=== PATIENT | female | born 1950 | race Caucasian/White ===

== ENCOUNTER 2019-02-09 18:11 | Inpatient (IN) | payer OTHER, MEDICARE ==
[~2019-02-09] VITALS: Ht 156.2 cm; Wt 78.5 kg
--- NOTE | 2019-02-09 20:48 | NUR ---
PT GETTING BLOOD DRAWN AT THIS TIME. INFORMED RACING SECRETARY THAT PT WILL GO TO BED 11 WHEN BLOOD DRAW IS COMPLETE.
[2019-02-09 21:17] LABS: BASOPHIL % 0.2 % (0-2); PLATELET COUNT 232 x10^3mcL (130-400); RED CELL DISTRIBUTION WIDTH 14.1 % (11.5-14.5)
[2019-02-09 21:20] LABS: BILIRUBIN TOTAL 1.88 mg/dL (0.20-1.00); CALCIUM 9.1 mg/dL (8.5-10.1); TOTAL PROTEIN, SERUM 7.8 g/dL (6.4-8.2)
[2019-02-09 21:24] LABS: ALBUMIN 3.3 g/dL (3.4-5.0); POTASSIUM SERUM 2.7 mmol/L (3.5-5.1)
[2019-02-09 21:29] LABS: CK-MB < 0.5 ng/mL (0-3.6); CREATINE KINASE 61 U/L (26-192)
--- NOTE | 2019-02-09 21:59 | NUR ---
PT. PRESENTS TO ER C/O N/V X 1 DAY, FEVER & CHILLS, DENIES ANY OTHER SYMPTOMS, PT. PLACED IN BED 11, AAOX4, NO ACUTE DISTRESS NOTED, SAFETY PRECAUTIONS IN PLACE, PLACED ON CM, AT BEDSIDE, WILL CONTINUE TO MONITOR. FLU SWAB & URINE OBTAINED
--- NOTE | 2019-02-09 22:15 | NUR ---
MEDICATE PT. PER DR ORDER, POTASSIUM RUNNING, PT. TOLERATING WELL, SEE EMAR
[2019-02-09 22:51] LABS: microscopic required? YES; urine erythrocyte TRACE (NEGATIVE)
--- NOTE | 2019-02-09 23:07 | NUR ---
DR. RAMOS WITH UPDATE ON POC
--- NOTE | 2019-02-09 23:29 | NUR ---
MEDICATED PT. PER DR. VILLARREAL, PT. TOLERATING WELL, SEE EMAR
[2019-02-09] MEDS ORDERED: SYN2 PO (23:33)
[2019-02-09] MEDS ORDERED: AVAPRO75 MG PO (23:36)
[2019-02-09] MEDS ORDERED: [UNRECOGNIZED DRUG - CODE] PO (23:37)
[2019-02-09] MEDS ORDERED: KLOR-CON 88 MEQ PO (23:38)
[2019-02-09] MEDS ORDERED: GLUCOSAMINE CH1 EAC3 PO (23:39)
[2019-02-09] MEDS ORDERED: PRESERVISION A1 EACH PO (23:40)
[2019-02-09] MEDS ORDERED: FORTAMET500 M1 PO (23:41)
[2019-02-09] MEDS ORDERED: GLUCOPHAGE XR500 MG PO (23:43)
[2019-02-09] MEDS ORDERED: VITAMIN C1000 M4 PO (23:44)
[2019-02-09] MEDS ORDERED: CALCIUM 500 +1 EACH PO (23:48)
[2019-02-09] MEDS ORDERED: PHARMASSURE FO0.4 MG PO (23:48)
[2019-02-09] MEDS ORDERED: ATORVASTATIN CA40 M1 PO (23:49)
[2019-02-09] MEDS ORDERED: VITD PO (23:50)
--- NOTE | 2019-02-10 00:22 | NUR ---
PT. LAYING IN BED, AAOX4, NO ACUTE DISTRESS NOTED, DENIES PAIN, PENDING ADMIT, WAITING FOR ROOM ASSIGNMENT, UPDATED PT WITH POC, HUSABND AT BEDSIDE, WILL MONITOR.
--- NOTE | 2019-02-10 00:52 | NUR ---
REPORT CALLED TO DORA BARRIGA RN
--- NOTE | 2019-02-10 01:08 | NUR ---
RECEIVED PT FROM ED VIA [facility], CAME IN DUE TO FEVER X2 DAYS. AAOX4. DENIES HEADACHE/DIZZINESS. NO SOB NOTED, LUNG SOUNDS CTA. DENIES CHEST PAIN/PRESSURE. 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 VOIDS FREELY. DENIES BURNING SENSATION ON URINATION. IV SITE ON THE LFA IS PATENT AND INTACT. SIDE RAILS UPX2. CALL LIGHT ON REACH. ENDORSED TO PRIMARY NURSE TO FANNY FOR CONTINUITY OF CARE.
--- NOTE | 2019-02-10 01:10 | NUR ---
RECEIVED PT FROM MELISSA PHILLIPS. PT AOX4. IN NO ACUTE DISTRESS. CALL LIGHT WITHIN REACH. BED IN LOWEST POSITION. WILL CONTINUE TO MONITOR.
[2019-02-10 01:24] VITALS: BP 123/72
[2019-02-10 01:26] VITALS: Ht 156.2 cm; Wt 78.5 kg
--- NOTE | 2019-02-10 03:31 | NUR ---
PT TEMP 102.9 ORALLY, MEDICATED PER EMAR. COOLING MEASURES IN PLACE.
[2019-02-10 05:16] VITALS: BP 108/49
--- NOTE | 2019-02-10 05:22 | NUR ---
TEMP 102.4, AWAITING CALL BACK FROM DR. ANTONIO.
[2019-02-10 06:40] LABS: BASOPHIL % 0.1 % (0-2); PLATELET COUNT 191 x10^3mcL (130-400); RED CELL DISTRIBUTION WIDTH 14.3 % (11.5-14.5)
[2019-02-10 07:05] LABS: CARBON DIOXIDE 25.3 mmol/L (21-32); CHLORIDE SERUM 102 mmol/L (98-107); CREATININE SERUM 0.9 mg/dL (0.6-1.0); GFR1 > 60 mL/min; GLUCOSE SERUM 138 mg/dL (74-106); MAGNESIUM 1.1 mg/dL (1.8-2.4); PHOSPHOROUS 1.7 mg/dL (2.5-4.9); SODIUM SERUM 140 mmol/L (136-145)
--- NOTE | 2019-02-10 07:30 | NUR ---
PT ENDORSE TO ME THIS MORNING, LAYING IN BED RESTING, AA/OX4, BREATHING EVEN AND UNLABORED ON RA, NO ACUTE RESP DISTRESS OR SOB NOTED. TELE [address] WAVE DECREASE, DENIES ANY CP OR PRESSURE. LAST BM 02/09, VOIDS FREELY. AMB, IV TO THE LFA INTACT AND PATENT INFUSING AT 100ML/HR, NO REDNESS OR SWELLING NOTED. CALL LIGHT IN REACH. BED IN LOW POSITION. WILL CONTINUE TO MONITOR.
[2019-02-10 07:31] LABS: POTASSIUM SERUM 2.6 mmol/L (3.5-5.1)
--- NOTE | 2019-02-10 08:09 | NUR ---
LAB CALLED PT K 2.6 DR. HICKMAN MADE AWARE.
[2019-02-10 08:59] VITALS: BP 120/57
[2019-02-10 11:36] VITALS: BP 131/63
--- NOTE | 2019-02-10 12:24 | NUR ---
PT ACCU CK IS 194, REFUSING TO HAVE 3 UNITS OF INSULIN, ASKING ABOUT METFORMIN MEDICATION. DR. HICKMAN MADE AWARE OF PTS ACCU CHECK AND THAT PT WOULD LIKE TO SPEAK TO HER REGRADING METFORMIN MED.
--- NOTE | 2019-02-10 15:26 | NUR ---
PT TEMP IS 100.3, MEDICATED PER EMAR AND APPLYIED COOLING MEASURES. WILL CONTINUE TO MONITOR.
[2019-02-10 16:48] VITALS: BP 159/51
--- NOTE | 2019-02-10 18:47 | NUR ---
NO ACUTE CHANGES AT THIS TIME, NO ACUTE RESP DISTRESS OR SOB NOTED. CURRENT TEMP IS 98.9, DENIES ANY DISCOMFORT AT THIS TIME. IV TO THE LFA INFUSING K AT 68.1 ML/HR/TOLERATING WELL. WILL ENDORSE TO INCOMING RN.
--- NOTE | 2019-02-10 19:48 | NUR ---
RECEIVED PT IN BED AAOX4 NO ACUTE DISTRESS NOTED, LUNG SOUNDS CTA , ABD SOFT BS ACTIEVE X4 , PT DENY N/V AT THE MOMENT , ON TELE NUMBER 24 THAT SHOWS NSR HR 77, PIV INTACT INFUSING NS AT 100 AND KRIDER AT THE MOMENT . CALL LIGHT WITHIN [PT;S REACH , WILL CON'T TO MONITOR AND ASSIST PT WITH CARE .
[2019-02-10 21:16] VITALS: BP 141/72
--- NOTE | 2019-02-10 23:56 | NUR ---
POST TYLENOL TEMP DOWN TO 98.9. PIV INTACT INFUSING WELL . TELE NSR .
--- NOTE | 2019-02-11 04:37 | NUR ---
I HAVE REVIEWED THE DATA COLLECTION BY MERCEDE[facility] (NAME):WILLIAM DAVIES ENTERED ON (DATE/TIME):02/10 I CONCUR WITH THE DATA AND ANY EXCEPTIONS OR COMMENTS ARE LISTED BELOW:
[2019-02-11 05:06] VITALS: BP 149/51
--- NOTE | 2019-02-11 05:24 | NUR ---
TEMP 102.2 TYLENOL GIVEN . WILL NOTIFY
[2019-02-11 06:35] LABS: CALCIUM 7.8 mg/dL (8.5-10.1); CARBON DIOXIDE 27.2 mmol/L (21-32); CHLORIDE SERUM 104 mmol/L (98-107); CREATININE SERUM 0.7 mg/dL (0.6-1.0); GFR1 > 60 mL/min; GLUCOSE SERUM 124 mg/dL (74-106); MAGNESIUM 1.7 mg/dL (1.8-2.4); PHOSPHOROUS 1.9 mg/dL (2.5-4.9); SODIUM SERUM 140 mmol/L (136-145)
--- NOTE | 2019-02-11 06:51 | NUR ---
NO CHANGES OF CONDITION NOTED , PT'S IN BED WITH EYES CLOSED , TELE NSR , PIV INTACT INFUSING WELL .
--- NOTE | 2019-02-11 06:57 | NUR ---
POST TYLENOL TEMP 100.6.
--- NOTE | 2019-02-11 07:30 | NUR ---
PT ENDORSE TO ME THIS MORNING, AA/O X4, BREATHING EVEN AND UNLABORED ON RA, NO ACUTE REPS DISTRESS OR SOB NOTED. CURRENT TEMP IS 100.6. TELE 24 NSR, DENIES ANY CP OR PRESSURE. VOIDS FREELY. AMB. IV TO THE LFA INTACT AND PATENT INFUSING AT 100ML/HR NO REDNESS OR SWELLING NOTED. CALL LIGHT IN REACH, BED IN LOW POSITION. WILL CONTINUE TO MONITOR.
[2019-02-11 07:50] LABS: BASOPHIL % 0.1 % (0-2); PLATELET COUNT 177 x10^3mcL (130-400); RED CELL DISTRIBUTION WIDTH 14.6 % (11.5-14.5)
[2019-02-11 08:56] VITALS: BP 123/42
[2019-02-11] MEDS ORDERED: FORTAMET500 M1 PO (11:59)
[2019-02-11] MEDS ORDERED: LEVAQUIN750 MG PO (11:59)
[2019-02-11 12:46] VITALS: BP 142/66
--- NOTE | 2019-02-11 13:00 | NUR ---
PT TOLERATED 100% OF HER LUNCH, CURRENT TEMP 98.3. AT BEDSIDE. WILL CONTINUE TO MONITOR.
--- NOTE | 2019-02-11 15:43 | NUR ---
PT STATED SHE FEELS WARM, CK HER TEMP ORALLY= 102.2 GAVE TYLENOL 650 MG PO, PT REFUSING COOLING MEASURES AT THIS TIME. DR. ANDERSON MADE AWARE.
--- NOTE | 2019-02-11 17:00 | NUR ---
FREDERIC PT TEMP CURRENTLY AT 99.4, DR. ANDERSON IN PT ROOM GOING OVER HER PLAN DUE TO SPIKE IN TEMP. WILL CONTINUE TO MONITOR.
[2019-02-11 17:29] VITALS: BP 115/40
--- NOTE | 2019-02-11 18:21 | NUR ---
PT IV SITE TO THE LFA REMOVED DUE TO DISCOMFORT AND SWELLING. REMOVED IV SITE, CATHETER TIP INTACT, LFA ELEVATED, HEATING APPLIED. PT STATED SHE IS THINKING ABOUT LEAVING AMA.
--- NOTE | 2019-02-11 18:23 | NUR ---
WILL ENDORSE CARE TO INCOMING RN.
--- NOTE | 2019-02-11 19:26 | NUR ---
PT'S LEAVING THE HOSPITAL AGAINST MEDICAL ADVICE AND TREATMENT , SPOKE TO DR ANDERSON THIS EVENING .NO ACUTE DISTRESS NOTED AT THE MOMENT , IV WAS DC'D BY AM NURSE , TELE DC'D WELL .
--- NOTE | 2019-02-11 19:34 | NUR ---
PT'S WHEELED OUT TO PRIVATE CAR BY LABORER CONSTRUCTION OR LEAK GANG NO ACUTE DISTRESS NOTED.AMA FORM IN THE CHART.
== END 2019-02-11 19:35 | disposition left against medical advice (07) | DRG 871 ==
LOC: ED 18:11 → DU 23:13
PROVIDERS: Emergency Medicine; ADMIT General Practice
DX: A41.9 Sepsis, unspecified organism (principal); N17.0 Acute kidney failure with tubular necrosis; N39.0 Urinary tract infection, site not specified; E44.1 Mild protein-calorie malnutrition; E87.6 Hypokalemia; I10 Essential (primary) hypertension; E80.6 Other disorders of bilirubin metabolism; E03.9 Hypothyroidism, unspecified; Z79.84 Long term (current) use of oral hypoglycemic drugs; Z68.32 Body mass index [BMI] 32.0-32.9, adult
CPT/HCPCS: 82962; 83880; 87804; G0378; J0696; J3475; J3480; J7030; J7060